=== PATIENT | female | born 1990 | race Caucasian/White ===

== ENCOUNTER 2016-06-09 16:05 | Inpatient (IN) | payer OTHER ==
[~2016-06-09] VITALS: Ht 170.2 cm; Wt 50.3 kg
[2016-06-09 16:05] VITALS: BP 109/73
[2016-06-09 18:50] VITALS: BP 106/66
[2016-06-09 19:45] LABS: BASOPHILS % (AUTO) 1.2 % (0.0-2.0); EOSINOPHILS % (AUTO) 0.1 % (0.0-3.0); LYMPHOCYTES % (AUTO) 21.4 % (20.0-45.0); MEAN CORPUSCULAR HEMOGLOBIN 29.6 PG (27.0-31.0); MEAN CORPUSCULAR HGB CONC 31.5 G/DL (32.0-36.0); MEAN CORPUSCULAR VOLUME 94 FL (80-99); NEUTROPHILS % (AUTO) 74.2 % (45.0-75.0); PLATELET COUNT 371 K/UL (150-450); RED BLOOD COUNT 4.93 M/UL (4.20-5.40); RED CELL DISTRIBUTION WIDTH 16.7 % (11.6-14.8); WHITE BLOOD COUNT 12.6 K/UL (4.8-10.8)
[2016-06-09 19:59] LABS: ALANINE AMINOTRANSFERASE 31 U/L (3-33); ALBUMIN/GLOBULIN RATIO 1.6 (1.0-2.7); ALCOHOL 451 mg/dL; ANION GAP 25 (5-15); ASPARTATE AMINO TRANSFERASE 56 U/L (5-40); CALCIUM 8.8 mg/dL (8.6-10.2); CARBON DIOXIDE 20 mEQ/L (20-30); CHLORIDE 96 mEQ/L (98-107); CREATININE 0.7 mg/dL (0.5-0.9); GLOMERULAR FILTRATION RATE > 60 mL/min (>60); HEMOLYSIS 132; SODIUM 141 mEQ/L (135-145); TOTAL PROTEIN 7.7 g/dL (6.6-8.7)
[2016-06-09 20:01] LABS: POTASSIUM 5.6 mEQ/L (3.4-4.9)
[2016-06-09 21:59] VITALS: BP 110/69
[2016-06-09 23:30] VITALS: BP 115/71
--- NOTE | 2016-06-09 23:40 | History and Physical ---
History of Present Illness General Date patient seen: Jun 09, 2016 Reason for Hospitalization: Alcohol Intoxication Present Illness HPI 26 yo F w/ Hx ETOH abuse and dependence. Presented to ED w/ severe ETOH intoxication. Pt alert, however non cooperative w/ questioning. Found to have BAL level of 400, anion gap acidosis. Pt was [facility] in [place]. Allergies: Coded Allergies: No Known Allergies (Unverified , 06/09/16) UNABLE TO ASSESS (Unverified , 03/20/16) Patient History Limited by: medical condition - Pt poorly cooperative w/ questioning due to intoxication History Provided By: Patient, Medical Record Healthcare decision maker Resuscitation status Advanced Directive on File Review of Systems All Other Systems: negative except mentioned in HPI - pt poorly cooperative w/ questioning Physical Exam Physical Exam Narrative General Appearance: Alert, CIWA (4), No Apparent Distress Neuro: Cranial Nerves 3-12 NL, Grossly Non-Focal, Motor and Sensory Intact, Normal Gait, Normal Speech, Normal Tone HEENT: Atraumatic, EOMI, PERRLA, Symmetrical Neck: Full Range of Motion, Supple, No: Enlarged Thyroid, JVD, Lymphadenopathy, Tenderness Cardiovascular: Normal S1, Normal S2, Regular Rate, Regular Rhythm, No: Gallops, Murmurs, Rubs Lungs: Clear Bilaterally, Normal Air Movement, Respiratory Effort (Non-Labored) , No: Rhonchi, Wheezing Abdomen: Bowel Sounds Present, Soft, No: Distended, Masses, Organomegaly, Tenderness Extremities: Capillary Refill Exam (< 3 seconds (WNL)), Normal Pulses, No: Clubbing, Cyanosis, Edema Skin: Dry, Intact, No: Cyanosis, Jaundiced, Rashes Lymph: No: Lymphadenopathy, Lymphedema Psych/Mental Status: Mental Status NL Last 24 Hour Vital Signs Date Time Temp Pulse Resp B/P Pulse Ox O2 Delivery O2 Flow Rate FiO2 06/09/16 21:59 98.1 85 20 110/69 100 Room Air 06/09/16 18:50 98.1 91 20 106/66 100 Room Air 06/09/16 16:05 98.2 68 20 109/73 100 Room Air 06/09/16 16:00 98.2 92 20 109/73 100 Room Air Laboratory Tests Test 06/09/16 19:30 White Blood Count 12.6 K/UL (4.8-10.8) H Red Blood Count 4.93 M/UL (4.20-5.40) Hemoglobin 14.6 G/DL (12.0-16.0) Hematocrit 46.4 % (37.0-47.0) Mean Corpuscular Volume 94 FL (80-99) Mean Corpuscular Hemoglobin 29.6 PG (27.0-31.0) Mean Corpuscular Hemoglobin Concent 31.5 G/DL (32.0-36.0) L Red Cell Distribution Width 16.7 % (11.6-14.8) H Platelet Count 371 K/UL (150-450) Mean Platelet Volume 6.0 FL (6.5-10.1) L Neutrophils (%) (Auto) 74.2 % (45.0-75.0) Lymphocytes (%) (Auto) 21.4 % (20.0-45.0) Monocytes (%) (Auto) 3.0 % (1.0-10.0) Eosinophils (%) (Auto) 0.1 % (0.0-3.0) Basophils (%) (Auto) 1.2 % (0.0-2.0) Sodium Level 141 mEQ/L (135-145) Potassium Level 5.6 mEQ/L (3.4-4.9) H Chloride Level 96 mEQ/L (98-107) L Carbon Dioxide Level 20 mEQ/L (20-30) Anion Gap 25 (5-15) H Blood Urea Nitrogen 13 mg/dL (7-23) Creatinine 0.7 mg/dL (0.5-0.9) Estimat Glomerular Filtration Rate > 60 mL/min (>60) Glucose Level 76 mg/dL (74-106) Calcium Level 8.8 mg/dL (8.6-10.2) Total Bilirubin 0.5 mg/dL (0.0-1.2) Aspartate Amino Transf (AST/SGOT) 56 U/L (5-40) H Alanine Aminotransferase (ALT/SGPT) 31 U/L (3-33) Alkaline Phosphatase 67 U/L (35-104) Total Protein 7.7 g/dL (6.6-8.7) Albumin 4.8 g/dL (3.5-5.2) Globulin 2.9 g/dL Albumin/Globulin Ratio 1.6 (1.0-2.7) Serum Alcohol 451 mg/dL Height (Feet): 5 Height (Inches): 7.00 Weight (Pounds): 110 Assessment/Plan Status: stable Assessment/Plan # Alcohol use disorder/ alcohol dependence with acute intoxication (F10.229) # Alcoholic ketoacidosis # Hyperkalemia, due to alcoholic ketoacidosis - admit to in pt- close observation - thiamine 100mg IV - banana bag - IVF w/ D5 1/2 NS- CIWA protocol - seizure precautions - chem, mag, LFT's in AM - evaluation for detox/rehab time of note dose not reflect time of clinical encounter Gabino Henderson MD Jun 09, 2016 23:40
[2016-06-10 01:21] VITALS: BP 110/76
[2016-06-10] MEDS ORDERED: Thiamine HCl 100 MG, Folic Acid 1 MG, Magnesium Sulfate 2,000 MG, Multivitamin - 12 Inj... IV SCH ×10 (02:30→08:00)
[2016-06-10] MEDS ORDERED: LORazepam Inj 2mg/ml 1ml IV PRN (02:30)
[2016-06-10 04:00] VITALS: BP 106/70
[2016-06-10] MEDS: D5 1/2NS 1,000 ML IV SCH ×2 (04:56→13:14)
[2016-06-10 08:01] VITALS: BP 112/60
[2016-06-10] MEDS ORDERED: D5W IVPB SCH (09:00)
[2016-06-10] MEDS ORDERED: Folic Acid 1 MG, Magnesium Sulfate 2,000 MG, Multivitamin - 12 Injection 10 ML in NS w/... IV SCH (09:00)
[2016-06-10] MEDS ORDERED: THIAMINE IVPB SCH (09:00)
[2016-06-10 10:01] LABS: BASOPHILS % (AUTO) 0.8 % (0.0-2.0); EOSINOPHILS % (AUTO) 0.2 % (0.0-3.0); LYMPHOCYTES % (AUTO) 15.6 % (20.0-45.0); MEAN CORPUSCULAR HGB CONC 33.5 G/DL (32.0-36.0); MEAN CORPUSCULAR VOLUME 89 FL (80-99); MONOCYTES % (AUTO) 16.6 % (1.0-10.0); NEUTROPHILS % (AUTO) 66.8 % (45.0-75.0); PLATELET COUNT 343 K/UL (150-450); RED BLOOD COUNT 4.18 M/UL (4.20-5.40); RED CELL DISTRIBUTION WIDTH 15.7 % (11.6-14.8); WHITE BLOOD COUNT 10.5 K/UL (4.8-10.8)
[2016-06-10 10:41] LABS: ALANINE AMINOTRANSFERASE 25 U/L (3-33); ALBUMIN/GLOBULIN RATIO 1.7 (1.0-2.7); ANION GAP 17 (5-15); ASPARTATE AMINO TRANSFERASE 36 U/L (5-40); CALCIUM 9.2 mg/dL (8.6-10.2); CARBON DIOXIDE 27 mEQ/L (20-30); CHLORIDE 92 mEQ/L (98-107); CREATININE 0.6 mg/dL (0.5-0.9); GLOMERULAR FILTRATION RATE > 60 mL/min (>60); HEMOLYSIS 3; MAGNESIUM 1.5 mg/dL (1.7-2.5); POTASSIUM 4.2 mEQ/L (3.4-4.9); SODIUM 136 mEQ/L (135-145); TOTAL PROTEIN 6.7 g/dL (6.6-8.7)
[2016-06-10 12:57] VITALS: BP 108/59
[2016-06-10] MEDS ORDERED: D5 1/2NS 1,000 ML IV SCH (13:00)
[2016-06-10] MEDS: chlordiazePOXIDE 25mg Cap ORAL SCH ×2 (13:13→21:39)
[2016-06-10 16:37] VITALS: BP 119/81
[2016-06-10] MEDS ORDERED: D5 1/2NS 1000ml IV ONE (18:32)
[2016-06-10] MEDS ORDERED: Tubing IV Secondary IV ONE (18:32)
[2016-06-10 20:00] VITALS: BP 120/81
--- NOTE | 2016-06-10 20:18 | General Progress Note ---
Assessment/Plan Problem List: (1) Hypomagnesemia ICD Codes: E83.42 - Hypomagnesemia SNOMED: 127494125 (2) Alcoholic hepatitis ICD Codes: K70.10 - Alcoholic hepatitis without ascites SNOMED: 660452718 (3) Alcohol withdrawal ICD Codes: F10.239 - Alcohol dependence with withdrawal, unspecified SNOMED: 692595405 (4) Alcohol abuse ICD Codes: F10.10 - Alcohol abuse, uncomplicated SNOMED: 64196046, 16446641 Status: progressing Assessment/Plan # Alcohol use disorder/ alcohol dependence with acute intoxication (F10.229) # Alcoholic ketoacidosis # Hyperkalemia, due to alcoholic ketoacidosis - admit to in pt- close observation - thiamine 100mg IV -folate, MVI - banana bag - IVF w/ D5 / NS- CIWA protocol -start Librium - seizure precautions - chem, mag, LFT's in AM - evaluation for detox/rehab Subjective Date patient seen: Jun 10, 2016 Time patient seen: 20:16 Allergies: Coded Allergies: No Known Allergies (Unverified , 06/09/16) Subjective +n/v Objective Last 24 Hour Vital Signs Date Time Temp Pulse Resp B/P Pulse Ox O2 Delivery O2 Flow Rate FiO2 06/10/16 16:37 98.4 97 20 119/81 95 Room Air 06/10/16 12:57 97.8 99 18 108/59 95 Room Air 06/10/16 08:01 98.0 102 18 112/60 95 Room Air 06/10/16 04:00 98.1 89 18 106/70 95 Room Air 89 06/10/16 01:21 97.6 86 18 110/76 100 Room Air 06/10/16 01:00 98.1 85 16 115/72 100 Room Air 06/09/16 23:30 98.4 83 16 115/71 99 Room Air 06/09/16 21:59 98.1 85 20 110/69 100 Room Air Intake and Output 06/09/16 06/10/16 19:00 07:00 Intake Total 660 ml Balance 660 ml Intake Oral 460 ml IV Total 200 ml # Voids 1 1 Laboratory Tests 06/10/16 09:30: White Blood Count 10.5, Red Blood Count 4.18L, Hemoglobin 12.5, Hematocrit 37.4 , Mean Corpuscular Volume 89, Mean Corpuscular Hemoglobin 30.0, Mean Corpuscular Hemoglobin Concent 33.5, Red Cell Distribution Width 15.7H, Platelet Count 343, Mean Platelet Volume 6.0L, Neutrophils (%) (Auto) 66.8, Lymphocytes (%) (Auto) 15.6L, Monocytes (%) (Auto) 16.6H, Eosinophils (%) (Auto ) 0.2, Basophils (%) (Auto) 0.8, Sodium Level 136, Potassium Level 4.2, Chloride Level 92L, Carbon Dioxide Level 27, Anion Gap 17H, Blood Urea Nitrogen 11, Creatinine 0.6, Estimat Glomerular Filtration Rate > 60, Glucose Level 112H , Calcium Level 9.2, Magnesium Level 1.5L, Total Bilirubin 1.0, Aspartate Amino Transf (AST/SGOT) 36, Alanine Aminotransferase (ALT/SGPT) 25, Alkaline Phosphatase 61, Total Protein 6.7, Albumin 4.3, Globulin 2.4, Albumin/Globulin Ratio 1.7 Height (Feet): 5 Height (Inches): 7.00 Weight (Pounds): 111 Objective General Appearance: Alert, CIWA (4), No Apparent Distress Neuro: Cranial Nerves 3-12 NL, Grossly Non-Focal, Motor and Sensory Intact, Normal Gait, Normal Speech, Normal Tone HEENT: Atraumatic, EOMI, PERRLA, Symmetrical Mouth: + tongue fasciculations Neck: Full Range of Motion, Supple, No: Enlarged Thyroid, JVD, Lymphadenopathy, Tenderness Cardiovascular: Normal S1, Normal S2, Regular Rate, Regular Rhythm, No: Gallops, Murmurs, Rubs Lungs: Clear Bilaterally, Normal Air Movement, Respiratory Effort (Non-Labored) , No: Rhonchi, Wheezing Abdomen: Bowel Sounds Present, Soft, No: Distended, Masses, Organomegaly, Tenderness Extremities: Capillary Refill Exam (< 3 seconds (WNL)), Normal Pulses, No: Clubbing, Cyanosis, Edema Skin: Dry, Intact, No: Cyanosis, Jaundiced, Rashes Lymph: No: Lymphadenopathy, Lymphedema Psych/Mental Status: Mental Status NL Kike Guzman M.D. Jun 10, 2016 20:18
[2016-06-11] VITALS (7 sets, daily range): BP systolic 0–124; BP diastolic 63–73
[2016-06-11] MEDS: D5 1/2NS 1,000 ML IV SCH ×3 (00:45→20:24)
[2016-06-11] MEDS: LORazepam 1mg tab ORAL PRN (00:50)
[2016-06-11] MEDS: chlordiazePOXIDE 25mg Cap ORAL SCH ×2 (06:24→17:12)
[2016-06-11 08:02] LABS: ALANINE AMINOTRANSFERASE 22 U/L (3-33); ALBUMIN/GLOBULIN RATIO 1.5 (1.0-2.7); ANION GAP 15 (5-15); ASPARTATE AMINO TRANSFERASE 36 U/L (5-40); CALCIUM 8.9 mg/dL (8.6-10.2); CARBON DIOXIDE 25 mEQ/L (20-30); CHLORIDE 98 mEQ/L (98-107); CREATININE 0.7 mg/dL (0.5-0.9); GLOMERULAR FILTRATION RATE > 60 mL/min (>60); HEMOLYSIS 5; MAGNESIUM 2.2 mg/dL (1.7-2.5); POTASSIUM 4.3 mEQ/L (3.4-4.9); SODIUM 138 mEQ/L (135-145); TOTAL PROTEIN 6.4 g/dL (6.6-8.7)
[2016-06-11 08:43] LABS: BILIRUBIN,DIRECT 0.2 mg/dL (0.1-0.3)
--- NOTE | 2016-06-11 15:17 | Emergency Room Report ---
History of Present Illness General Chief Complaint: Alcohol Intoxication Source: Patient, Medical Record Present Illness HPI The patient is a 26-year-old female brought in by ambulance with twin sister for alcohol intoxication. The paramedics state that these patients are well- known for alcohol intoxication and they're usually seen at [facility]. The patient's are said to have gone through many rehabilitation facilities and continue to leave or fail out and return to drinking heavily. The patients are here with senior software architect who states the parents were out of the country continuously send them to these different facilities for treatment. The patient is unable to provide any information at this time due to mental state. Allergies: Coded Allergies: No Known Allergies (Unverified , 06/09/16) Patient History Limited by: other - intoxication Past Medical History: see triage record Past Surgical History: unable to obtain Pertinent Family History: unable to obtain Now: No Reviewed Nursing Documentation: PMH: Agreed, PSxH: Agreed Nursing Documentation-PMH Past Medical History: No Stated History History Of Psychiatric Problem: Yes - ETOH ABUSE Review of Systems All Other Systems: limited - Limited by mental state Physical Exam Vital Signs Date Time Temp Pulse Resp B/P Pulse Ox O2 Delivery O2 Flow Rate FiO2 06/09/16 16:00 98.2 92 20 109/73 100 Room Air Sp02 EP Interpretation: reviewed, normal General Appearance: no apparent distress, lethargic Head: normocephalic, atraumatic Eyes: bilateral eye PERRL, bilateral eye normal inspection ENT: hearing grossly normal, normal pharynx, no angioedema Neck: full range of motion, supple/symm/no masses Respiratory: chest non-tender, lungs clear, normal breath sounds, no wheezing, speaking full sentences Cardiovascular #1: regular rate, rhythm, no edema Gastrointestinal: normal bowel sounds, soft, non-distended, no guarding, no rebound Musculoskeletal: back normal, gait/station normal, normal range of motion, non- tender Neurologic: responsive, glassware verifier III-XII nml as tested, sensory intact, other - speech slurred Psychiatric: no suicidal/homicidal ideation Skin: normal color, no rash, warm/dry, well hydrated Medical Decision Making PA Attestation Dr. Blandon is my supervising physician. Patient management was discussed with my supervising physician Diagnostic Impression: Primary Impression: Acute alcoholic intoxication ER Course The patient is a 26-year-old female brought in by ambulance with twin sister for alcohol intoxication. DDx considered but not limited to: acute alcohol intoxication, hepatic encephalopathy, drug overdose, hypoglycemia, psychosis PE: Vitals WNL. NAD. Sleeping. head NC/AT. PERRL. Awakens to verbal and physical stimuli. RRR. Lungs CTA bilat. Abd non tender. Foul smelling CBC unremarkable. CMP shows hyperkalemia. Blood alcohol level is markedly elevated Pt given IV fluids. The patient becomes more responsive and alert as time goes on. The patient is given time to rest in the emergency department. The patient will be admitted for severe alcohol intoxication in stable condition Laboratory Tests Test 06/09/16 19:30 06/10/16 09:30 06/11/16 05:20 White Blood Count 12.6 K/UL (4.8-10.8) H 10.5 K/UL (4.8-10.8) Red Blood Count 4.93 M/UL (4.20-5.40) 4.18 M/UL (4.20-5.40) L Hemoglobin 14.6 G/DL (12.0-16.0) 12.5 G/DL (12.0-16.0) Hematocrit 46.4 % (37.0-47.0) 37.4 % (37.0-47.0) Mean Corpuscular Volume 94 FL (80-99) 89 FL (80-99) Mean Corpuscular Hemoglobin 29.6 PG (27.0-31.0) 30.0 PG (27.0-31.0) Mean Corpuscular Hemoglobin Concent 31.5 G/DL (32.0-36.0) L 33.5 G/DL (32.0-36.0) Red Cell Distribution Width 16.7 % (11.6-14.8) H 15.7 % (11.6-14.8) H Platelet Count 371 K/UL (150-450) 343 K/UL (150-450) Mean Platelet Volume 6.0 FL (6.5-10.1) L 6.0 FL (6.5-10.1) L Neutrophils (%) (Auto) 74.2 % (45.0-75.0) 66.8 % (45.0-75.0) Lymphocytes (%) (Auto) 21.4 % (20.0-45.0) 15.6 % (20.0-45.0) L Monocytes (%) (Auto) 3.0 % (1.0-10.0) 16.6 % (1.0-10.0) H Eosinophils (%) (Auto) 0.1 % (0.0-3.0) 0.2 % (0.0-3.0) Basophils (%) (Auto) 1.2 % (0.0-2.0) 0.8 % (0.0-2.0) Sodium Level 141 mEQ/L (135-145) 136 mEQ/L (135-145) 138 mEQ/L (135-145) Potassium Level 5.6 mEQ/L (3.4-4.9) H 4.2 mEQ/L (3.4-4.9) 4.3 mEQ/L (3.4-4.9) Chloride Level 96 mEQ/L (98-107) L 92 mEQ/L (98-107) L 98 mEQ/L (98-107) Carbon Dioxide Level 20 mEQ/L (20-30) 27 mEQ/L (20-30) 25 mEQ/L (20-30) Anion Gap 25 (5-15) H 17 (5-15) H 15 (5-15) Blood Urea Nitrogen 13 mg/dL (7-23) 11 mg/dL (7-23) 9 mg/dL (7-23) Creatinine 0.7 mg/dL (0.5-0.9) 0.6 mg/dL (0.5-0.9) 0.7 mg/dL (0.5-0.9) Estimate Glomerular Filtration Rate > 60 mL/min (>60) > 60 mL/min (>60) > 60 mL/min (>60) Glucose Level 76 mg/dL (74-106) 112 mg/dL (74-106) H 100 mg/dL (74-106) Calcium Level 8.8 mg/dL (8.6-10.2) 9.2 mg/dL (8.6-10.2) 8.9 mg/dL (8.6-10.2) Total Bilirubin 0.5 mg/dL (0.0-1.2) 1.0 mg/dL (0.0-1.2) 1.3 mg/dL (0.0-1.2) H Aspartate Amino Transferase (AST) 56 U/L (5-40) H 36 U/L (5-40) 36 U/L (5-40) Alanine Aminotransferase (ALT) 31 U/L (3-33) 25 U/L (3-33) 22 U/L (3-33) Alkaline Phosphatase 67 U/L (35-104) 61 U/L (35-104) 67 U/L (35-104) Total Protein 7.7 g/dL (6.6-8.7) 6.7 g/dL (6.6-8.7) 6.4 g/dL (6.6-8.7) L Albumin 4.8 g/dL (3.5-5.2) 4.3 g/dL (3.5-5.2) 3.9 g/dL (3.5-5.2) Globulin 2.9 g/dL 2.4 g/dL 2.5 g/dL Albumin/Globulin Ratio 1.6 (1.0-2.7) 1.7 (1.0-2.7) 1.5 (1.0-2.7) Serum Alcohol 451 mg/dL Magnesium Level 1.5 mg/dL (1.7-2.5) L 2.2 mg/dL (1.7-2.5) Direct Bilirubin 0.2 mg/dL (0.1-0.3) Lab Results Impression CBC unremarkable. CMP shows hyperkalemia. Blood alcohol level is markedly elevated Last Vital Signs Date Time Temp Pulse Resp B/P Pulse Ox O2 Delivery O2 Flow Rate FiO2 06/11/16 11:45 97.5 98 18 109/64 99 Room Air Status: improved Disposition: ADMITTED INPATIENT Condition: Stable Scripts No Active Prescriptions or Reported Meds Referrals: NOT CHOSEN IPA/,REFERRING (PCP) TONY LEE Jun 11, 2016 15:17
[2016-06-11] MEDS ORDERED: Thiamine 100mg tab ORAL SCH (16:00)
--- NOTE | 2016-06-11 18:04 | General Progress Note ---
Assessment/Plan Problem List: (1) Hypomagnesemia ICD Codes: E83.42 - Hypomagnesemia SNOMED: 675088564 (2) Alcoholic hepatitis ICD Codes: K70.10 - Alcoholic hepatitis without ascites SNOMED: 122694581 (3) Alcohol withdrawal ICD Codes: F10.239 - Alcohol dependence with withdrawal, unspecified SNOMED: 369224321 (4) Alcohol abuse ICD Codes: F10.10 - Alcohol abuse, uncomplicated SNOMED: 29888398, 34214059 Assessment/Plan # Alcohol use disorder/ alcohol dependence with acute intoxication (F10.229) # Alcoholic ketoacidosis # Hyperkalemia, due to alcoholic ketoacidosis - admit to in pt- close observation - thiamine 100mg IV-->po -folate, MVI po - dc banana bag - IVF w/ D5 06/01 NS - CIWA protocol -start Librium taper - seizure precautions - chem, mag, LFT's in AM - pt not interested in detox/rehab Subjective Date patient seen: Jun 11, 2016 Time patient seen: 17:59 Allergies: Coded Allergies: No Known Allergies (Unverified , 06/09/16) Subjective no n/v Objective Last 24 Hour Vital Signs Date Time Temp Pulse Resp B/P Pulse Ox O2 Delivery O2 Flow Rate FiO2 06/11/16 16:00 97.7 95 18 105/70 98 Room Air 06/11/16 11:45 97.5 98 18 109/64 99 Room Air 06/11/16 08:00 97.5 65 18 100/63 98 Room Air 06/11/16 04:00 97.7 63 18 124/73 98 Room Air 06/11/16 00:00 97.9 65 18 111/68 97 Room Air 06/10/16 20:00 98.1 85 18 120/81 98 Room Air Intake and Output 06/10/16 06/11/16 19:00 07:00 Intake Total 1661 ml 1770 ml Balance 1661 ml 1770 ml Intake Oral 760 ml 570 ml IV Total 901 ml 1200 ml # Voids 4 4 Laboratory Tests 06/11/16 05:20: Sodium Level 138, Potassium Level 4.3, Chloride Level 98, Carbon Dioxide Level 25, Anion Gap 15, Blood Urea Nitrogen 9, Creatinine 0.7, Estimat Glomerular Filtration Rate > 60, Glucose Level 100, Calcium Level 8.9, Magnesium Level 2.2 , Total Bilirubin 1.3H, Direct Bilirubin 0.2, Aspartate Amino Transf (AST/SGOT) 36, Alanine Aminotransferase (ALT/SGPT) 22, Alkaline Phosphatase 67, Total Protein 6.4L, Albumin 3.9, Globulin 2.5, Albumin/Globulin Ratio 1.5 Height (Feet): 5 Height (Inches): 7.00 Weight (Pounds): 111 Objective General Appearance: Alert, sleepy but arousable, No Apparent Distress Neuro: Cranial Nerves 3-12 NL, Grossly Non-Focal, Motor and Sensory Intact, Normal Gait, Normal Speech, Normal Tone; no tongue fasciculations or tremor or flapping asterixis HEENT: Atraumatic, EOMI, PERRLA, Symmetrical Neck: Full Range of Motion, Supple, No: Enlarged Thyroid, JVD, Lymphadenopathy, Tenderness Cardiovascular: Normal S1, Normal S2, Regular Rate, Regular Rhythm, No: Gallops, Murmurs, Rubs Lungs: Clear Bilaterally, Normal Air Movement, Respiratory Effort (Non-Labored) , No: Rhonchi, Wheezing Abdomen: Bowel Sounds Present, Soft, No: Distended, Masses, Organomegaly, Tenderness Extremities: Capillary Refill Exam (< 3 seconds (WNL)), Normal Pulses, No: Clubbing, Cyanosis, Edema Skin: Dry, Intact, No: Cyanosis, Jaundiced, Rashes Lymph: No: Lymphadenopathy, Lymphedema Psych/Mental Status: Mental Status NL, clear thought process Kike Guzman M.D. Jun 11, 2016 18:04
[2016-06-12] MEDS: LORazepam 1mg tab ORAL PRN (00:17)
[2016-06-12] MEDS ORDERED: TraZODone 50mg tab ORAL SCH ×2 (02:30→21:00)
[2016-06-12 04:00] VITALS: BP 112/68
[2016-06-12] MEDS: D5 1/2NS 1,000 ML IV SCH (05:57)
[2016-06-12 08:00] VITALS: BP 90/56
[2016-06-12] MEDS: chlordiazePOXIDE 25mg Cap ORAL SCH (09:00)
[2016-06-12] MEDS ORDERED: MULTIVITAMINS1 EAC2 ORAL (11:27)
[2016-06-12] MEDS ORDERED: LIBRIUM10 MG ORAL (11:28)
[2016-06-12] MEDS ORDERED: VITAMIN B-1100 MG ORAL (11:29)
[2016-06-12] MEDS ORDERED: FOLIC ACID1 MG ORAL (11:29)
[2016-06-12 12:00] VITALS: BP 103/58
[2016-06-12] MEDS ORDERED: D5 1/2NS 1000ml IV ONE (14:59)
--- NOTE | 2016-06-12 15:34 | Discharge Summary ---
Discharge Summary Hospital Course Date of Admission Jun 09, 2016 at 19:23 Date of Discharge Jun 12, 2016 at 15:00 Admitting Diagnosis ams, etoh intoxication HPI Citlali Michel is a 26 year old female who was admitted on Jun 09, 2016 at 19: 23 for Altered Mental Status, Etoh intoxication Hospital Course - admitted to in pt for close observation - thiamine 100mg IV-->po -folate, MVI po - banana bag - IVF w/ D5 1/2 NS - CIWA protocol -started Librium taper - seizure precautions - chem, mag, LFT's - pt not interested in detox/rehab -counseled pt extensively on alcohol abstinence Discharge Medications Continued Medications: Chlordiazepoxide Hcl* (Librium*) 10 Mg Capsule 25 MG ORAL DAILY for 5 Days, #5 CAP 0 Refills Folic Acid* (Folic Acid*) 1 Mg Tablet 1 MG ORAL DAILY, #30 TAB Multivitamins* (Multivitamins*) 1 Each Tablet 1 TAB ORAL DAILY, #30 TAB 0 Refills Thiamine Hcl* (Vitamin B-1*) 100 Mg Tablet 100 MG ORAL DAILY, #30 TAB 0 Refills Discharge Condition Upon Discharge: stable Discharge Disposition Patient was discharged to Home (01) Discharge Diagnoses: (1) Hypomagnesemia (2) Alcohol abuse (3) Alcoholic hepatitis (4) Alcohol withdrawal (5) Acute alcoholic intoxication Kike Guzman M.D. Jun 12, 2016 15:34
== END 2016-06-12 15:00 | disposition home or self-care (01) | DRG 897 ==
LOC: EDBD 16:05 → EMR 16:35 → 4W 19:23 → EDBEDREQ 22:45 → 4W 06-10 00:58
PROC: HZ2ZZZZ Detoxification Services for Substance Abuse Treatment (ICD-10-PCS; principal; 2016-06-10)
DX: F10.239 Alcohol dependence with withdrawal, unspecified (principal); E87.2 Acidosis; K70.10 Alcoholic hepatitis without ascites; F10.229 Alcohol dependence with intoxication, unspecified; Y90.8 Blood alcohol level of 240 mg/100 ml or more; E87.5 Hyperkalemia; E83.42 Hypomagnesemia
CPT/HCPCS: 36415; 80053; 80329; 82248; 83735; 85025; J2405

== ENCOUNTER 2017-06-21 18:16 | Inpatient (IN) | payer OTHER ==
[~2017-06-21] VITALS: Ht 167.6 cm; Wt 49.9 kg
[~2017-06-21 18:16] MED LIST: FOLIC ACID1 MG ORAL; LIBRIUM10 MG ORAL; MULTIVITAMINS1 EAC2 ORAL; VITAMIN B-1100 MG ORAL
--- NOTE | 2017-06-21 19:33 | Emergency Room Report ---
History of Present Illness General Chief Complaint: Altered Level of Consciousness Source: EMS Present Illness HPI Patient presents with sister Was found on the floor of a hotel room unresponsive Patient is nonverbal Cannot provide any history at this time Patient was found in the room with a bottle of beer around no other drug paraphernalia no other notes Very limited history present illness Allergies: Coded Allergies: No Known Allergies (Unverified , 06/09/16) Patient History Past Medical History: see triage record Pertinent Family History: none Last Menstrual Period: UNK Reviewed Nursing Documentation: PMH: Agreed, PSxH: Agreed Nursing Documentation-PMH Past Medical History: Deferred Review of Systems All Other Systems: limited - my limited to the system Physical Exam Vital Signs Date Time Temp Pulse Resp B/P (MAP) Pulse Ox O2 Delivery O2 Flow Rate FiO2 06/21/17 18:17 97.9 90 18 115/70 96 Room Air Sp02 EP Interpretation: reviewed, normal General Appearance: no apparent distress Head: normocephalic, atraumatic Eyes: bilateral eye PERRL ENT: normal pharynx Neck: supple Respiratory: lungs clear, no respiratory distress, no retraction Cardiovascular #1: regular rate, rhythm, no edema Gastrointestinal: non tender, soft, no mass Musculoskeletal: other - Patient does not follow commands however does withdraw to physical stimuli purposefully Neurologic: responsive - to physical stimuli Psychiatric: other - patient is not verbal Lymphatic: no adenopathy Medical Decision Making Diagnostic Impression: Primary Impression: Altered level of consciousness Additional Impression: Acute alcoholic intoxication ER Course Multiple differentials considered Patient is unresponsive to verbal stimuli Extensive blood work initiated At this time patient's alcohol level is significantly elevated patient still remains unresponsive Given the presentation and the requirement for close reevaluation patient is admitted for further inpatient care Labs Test 06/21/17 19:23 06/21/17 20:10 Urine HCG, Qualitative Negative Urine Opiates Screen Negative (NEGATIVE) Urine Barbiturates Screen Negative (NEGATIVE) Phencyclidine (PCP) Screen Negative (NEGATIVE) Urine Amphetamines Screen Negative (NEGATIVE) Urine Benzodiazepines Screen Negative (NEGATIVE) Urine Cocaine Screen Negative (NEGATIVE) Urine Marijuana (THC) Screen Negative (NEGATIVE) White Blood Count 8.6 K/UL (4.8-10.8) Red Blood Count 4.67 M/UL (4.20-5.40) Hemoglobin 13.5 G/DL (12.0-16.0) Hematocrit 42.1 % (37.0-47.0) Mean Corpuscular Volume 90 FL (80-99) Mean Corpuscular Hemoglobin 29.0 PG (27.0-31.0) Mean Corpuscular Hemoglobin Concent 32.1 G/DL (32.0-36.0) Red Cell Distribution Width 15.9 % (11.6-14.8) Platelet Count 346 K/UL (150-450) Mean Platelet Volume 6.1 FL (6.5-10.1) Neutrophils (%) (Auto) 62.9 % (45.0-75.0) Lymphocytes (%) (Auto) 27.0 % (20.0-45.0) Monocytes (%) (Auto) 8.5 % (1.0-10.0) Eosinophils (%) (Auto) 0.6 % (0.0-3.0) Basophils (%) (Auto) 1.0 % (0.0-2.0) Sodium Level 147 MMOL/L (136-145) Potassium Level 4.4 MMOL/L (3.5-5.1) Chloride Level 110 MMOL/L (98-107) Carbon Dioxide Level 29 MMOL/L (21-32) Anion Gap 8 mmol/L (5-15) Blood Urea Nitrogen 6 mg/dL (7-18) Creatinine 0.7 MG/DL (0.55-1.30) Estimat Glomerular Filtration Rate > 60 mL/min (>60) Glucose Level 94 MG/DL (74-106) Calcium Level 8.0 MG/DL (8.5-10.1) Total Bilirubin 0.2 MG/DL (0.2-1.0) Aspartate Amino Transf (AST/SGOT) 84 U/L (15-37) Alanine Aminotransferase (ALT/SGPT) 42 U/L (12-78) Alkaline Phosphatase 65 U/L (46-116) Total Protein 7.4 G/DL (6.4-8.2) Albumin 3.4 G/DL (3.4-5.0) Globulin 4.0 g/dL Albumin/Globulin Ratio 0.9 (1.0-2.7) Salicylates Level 0.8 ug/mL (2.8-20) Acetaminophen Level < 2 MCG/ML (10-30) Serum Alcohol 442 mg/dL Last Vital Signs Date Time Temp Pulse Resp B/P (MAP) Pulse Ox O2 Delivery O2 Flow Rate FiO2 06/21/17 18:17 97.9 90 18 115/70 96 Room Air Status: improved Disposition: ADMITTED INPATIENT Condition: Serious AB OLSEN D.O. Jun 21, 2017 19:32
[2017-06-21 20:41] LABS: EOSINOPHILS % (AUTO) 0.6 % (0.0-3.0); HEMATOCRIT 42.1 % (37.0-47.0); HEMOGLOBIN 13.5 G/DL (12.0-16.0); MEAN CORPUSCULAR VOLUME 90 FL (80-99); MONOCYTES % (AUTO) 8.5 % (1.0-10.0); NEUTROPHILS % (AUTO) 62.9 % (45.0-75.0); PLATELET COUNT 346 K/UL (150-450); RED BLOOD COUNT 4.67 M/UL (4.20-5.40); RED CELL DISTRIBUTION WIDTH 15.9 % (11.6-14.8); WHITE BLOOD COUNT 8.6 K/UL (4.8-10.8)
[2017-06-21 20:46] LABS: ANION GAP 8 mmol/L (5-15); BLOOD UREA NITROGEN 6 mg/dL (7-18); CARBON DIOXIDE 29 MMOL/L (21-32); CHLORIDE 110 MMOL/L (98-107); CREATININE 0.7 MG/DL (0.55-1.30); POTASSIUM 4.4 MMOL/L (3.5-5.1); SODIUM 147 MMOL/L (136-145)
[2017-06-21 20:53] LABS: ALANINE AMINOTRANSFERASE 42 U/L (12-78); ALBUMIN 3.4 G/DL (3.4-5.0); ALBUMIN/GLOBULIN RATIO 0.9 (1.0-2.7); ALKALINE PHOSPHATASE 65 U/L (46-116); ASPARTATE AMINO TRANSFERASE 84 U/L (15-37); BILIRUBIN,TOTAL 0.2 MG/DL (0.2-1.0)
[2017-06-21 21:38] VITALS: BP 107/67
[2017-06-21] MEDS ORDERED: UNOBMED (23:42)
[2017-06-22] VITALS (7 sets, daily range): BP systolic 95–118; BP diastolic 63–76
[2017-06-22] MEDS: D5 1/2NS 1,000 ML IV SCH ×4 (02:15→18:21)
[2017-06-22] MEDS ORDERED: Thiamine HCl 100 MG, Folic Acid 1 MG, Magnesium Sulfate 2,000 MG, Multivitamin - 12 Inj... IV SCH ×5 (07:00)
[2017-06-22] MEDS: LORazepam 1mg tab ORAL PRN ×2 (08:17→23:45)
[2017-06-22] MEDS: Thiamine 100mg in D5W 55ml IVPB SCH (08:50)
[2017-06-22] MEDS: Folic Acid 1 MG, Magnesium Sulfate 2,000 MG, Multivitamin - 12 Injection 10 ML in NS w/... IV SCH (08:50)
--- NOTE | 2017-06-22 09:47 | History and Physical ---
History of Present Illness General Date patient seen: Jun 22, 2017 Time patient seen: 09:47 Reason for Hospitalization: Altered Level of Consciousness Present Illness HPI 27y/o female with pmh of alcohol abuse with dependence who presented with acute alcohol intoxication. Pt was found w/ twin sister on the floor of the hotel room. Pt was found next to her sister on the ground. Paramedics reported alcohol bottles around the room. No drugs found. On arrival to ED, pt is nonverbal and unresponsive to verbal stimuli. She did respond minimally to physical stimuli. Allergies: Coded Allergies: No Known Allergies (Unverified , 06/09/16) Medication History Scheduled Chlordiazepoxide Hcl* (Librium*), 25 MG ORAL DAILY, (Reported) Folic Acid* (Folic Acid*), 1 MG ORAL DAILY, (Reported) Multivitamins* (Multivitamins*), 1 TAB ORAL DAILY, (Reported) Thiamine Hcl* (Vitamin B-1*), 100 MG ORAL DAILY, (Reported) Miscellaneous Medications Unable to Obtain Medications (Unable To Obtain Meds), (Reported) Patient History Healthcare decision maker Resuscitation status Full Code Advanced Directive on File Review of Systems ROS Narrative LImited as pt with acute alcohol intoxication Physical Exam Physical Exam Narrative General: alert, cooperative, no distress, appears stated age, somnolent but arousable briefly to voice Head: normocephalic, without obvious abnormality, atraumatic Eyes: conjunctivae/corneas clear. PERRL, EOM's intact Throat: lips, mucosa, and tongue normal. MMM Neck: supple, symmetrical, trachea midline, and no JVD Lungs: clear to auscultation bilaterally Heart: regular rate and rhythm, S1, S2 normal, no murmur, click, rub or gallop Abdomen: soft, non-tender, non-distended, bowel sounds normal; no masses or organomegaly Extremities: extremities normal, atraumatic, no cyanosis or edema Pulses: 2+ and symmetric Skin: skin color, texture, turgor normal; no rashes or lesions Neurologic: grossly normal, no focal deficits Last 24 Hour Vital Signs Date Time Temp Pulse Resp B/P (MAP) Pulse Ox O2 Delivery O2 Flow Rate FiO2 06/22/17 09:00 97.7 97 20 102/68 99 Room Air 06/22/17 04:41 97.7 115 19 104/74 95 06/22/17 01:10 99.0 95 16 95/63 96 Room Air 06/22/17 00:48 99.0 95 16 95/63 96 Room Air 06/21/17 21:38 99.0 97 18 107/67 98 Room Air 06/21/17 18:17 97.9 90 18 115/70 96 Room Air Intake and Output 06/21/17 06/22/17 19:00 07:00 Intake Total 1095 ml Balance 1095 ml Intake Oral 720 ml IV Total 375 ml # Voids 1 Laboratory Tests Test 06/21/17 19:23 06/21/17 20:10 Urine HCG, Qualitative Negative Urine Opiates Screen Negative (NEGATIVE) Urine Barbiturates Screen Negative (NEGATIVE) Phencyclidine (PCP) Screen Negative (NEGATIVE) Urine Amphetamines Screen Negative (NEGATIVE) Urine Benzodiazepines Screen Negative (NEGATIVE) Urine Cocaine Screen Negative (NEGATIVE) Urine Marijuana (THC) Screen Negative (NEGATIVE) White Blood Count 8.6 K/UL (4.8-10.8) Red Blood Count 4.67 M/UL (4.20-5.40) Hemoglobin 13.5 G/DL (12.0-16.0) Hematocrit 42.1 % (37.0-47.0) Mean Corpuscular Volume 90 FL (80-99) Mean Corpuscular Hemoglobin 29.0 PG (27.0-31.0) Mean Corpuscular Hemoglobin Concent 32.1 G/DL (32.0-36.0) Red Cell Distribution Width 15.9 % (11.6-14.8) H Platelet Count 346 K/UL (150-450) Mean Platelet Volume 6.1 FL (6.5-10.1) L Neutrophils (%) (Auto) 62.9 % (45.0-75.0) Lymphocytes (%) (Auto) 27.0 % (20.0-45.0) Monocytes (%) (Auto) 8.5 % (1.0-10.0) Eosinophils (%) (Auto) 0.6 % (0.0-3.0) Basophils (%) (Auto) 1.0 % (0.0-2.0) Sodium Level 147 MMOL/L (136-145) H Potassium Level 4.4 MMOL/L (3.5-5.1) Chloride Level 110 MMOL/L (98-107) H Carbon Dioxide Level 29 MMOL/L (21-32) Anion Gap 8 mmol/L (5-15) Blood Urea Nitrogen 6 mg/dL (7-18) L Creatinine 0.7 MG/DL (0.55-1.30) Estimat Glomerular Filtration Rate > 60 mL/min (>60) Glucose Level 94 MG/DL (74-106) Calcium Level 8.0 MG/DL (8.5-10.1) L Total Bilirubin 0.2 MG/DL (0.2-1.0) Aspartate Amino Transf (AST/SGOT) 84 U/L (15-37) H Alanine Aminotransferase (ALT/SGPT) 42 U/L (12-78) Alkaline Phosphatase 65 U/L (46-116) Total Protein 7.4 G/DL (6.4-8.2) Albumin 3.4 G/DL (3.4-5.0) Globulin 4.0 g/dL Albumin/Globulin Ratio 0.9 (1.0-2.7) L Salicylates Level 0.8 ug/mL (2.8-20) L Acetaminophen Level < 2 MCG/ML (10-30) L Serum Alcohol 442 mg/dL Height (Feet): 5 Height (Inches): 6.00 Weight (Pounds): 110 Medications Current Medications Medications (Trade) Dose Ordered Sig/Glenny Route PRN Reason Start Time Stop Time Status Last Admin Dose Admin Dextrose (Dextrose 50%) STAT PRN IV Hypoglycemia 06/22/17 01:00 07/22/17 00:59 Dextrose/Sodium Chloride 1,000 ml @ 125 mls/hr Q8H IV 06/22/17 01:49 07/22/17 01:48 06/22/17 02:15 Folic Acid 1 mg/ Magnesium Sulfate 2000 mg/ Multivitamins 10 ml/Sodium Chloride 1,014.2 ml @ 125 mls/ hr Q24H IV 06/22/17 08:00 07/22/17 07:59 06/22/17 08:50 Lorazepam (Ativan) 1 mg Q2H PRN ORAL For Anxiety 06/22/17 01:00 06/29/17 00:59 06/22/17 08:17 Thiamine HCl 100 mg/Dextrose 56 ml @ 112 mls/hr Q24H IVPB 06/22/17 08:00 07/22/17 07:59 06/22/17 08:50 Assessment/Plan Problem List: (1) Alcohol use disorder ICD Codes: F10.99 - Alcohol use, unspecified with unspecified alcohol-induced disorder SNOMED: 536580, 95321282 (2) Alcohol dependence ICD Codes: F10.20 - Alcohol dependence, uncomplicated SNOMED: 45811591 (3) Acute alcoholic intoxication ICD Codes: F10.129 - Alcohol abuse with intoxication, unspecified SNOMED: 50507186 (4) Altered level of consciousness ICD Codes: R40.4 - Transient alteration of awareness SNOMED: 7529944 (5) Alcohol withdrawal ICD Codes: F10.239 - Alcohol dependence with withdrawal, unspecified SNOMED: 247507120 (6) Alcohol abuse ICD Codes: F10.10 - Alcohol abuse, uncomplicated SNOMED: 07394825, 44241276 (7) Hypernatremia ICD Codes: E87.0 - Hyperosmolality and hypernatremia SNOMED: 46368362 Status: unchanged Assessment/Plan - Admit inpt - Monitor respiratory status closely - Monitor for withdrawal - Zofran PRN n/v - Banana bag q24h - mIVFs - CIWA protocol - Seizure precautions - SW consult for evaluation for detox/rehab DVT ppx: SCDs FULL CODE 70min spent on this case w/ >50% on care/coordination. D/w pt/family, RN, SW/CM regarding mgmt and dispo. Tiffani Golden M.D. Jun 22, 2017 09:47
[2017-06-23] VITALS: BP 122/78
[2017-06-23] MEDS: D5 1/2NS 1,000 ML IV SCH (03:00)
[2017-06-23 04:00] VITALS: BP 109/62
[2017-06-23 07:03] LABS: BASOPHILS % (AUTO) 1.2 % (0.0-2.0); EOSINOPHILS % (AUTO) 1.7 % (0.0-3.0); HEMATOCRIT 38.3 % (37.0-47.0); HEMOGLOBIN 12.4 G/DL (12.0-16.0); LYMPHOCYTES % (AUTO) 30.1 % (20.0-45.0); MEAN CORPUSCULAR VOLUME 89 FL (80-99); MONOCYTES % (AUTO) 11.8 % (1.0-10.0); NEUTROPHILS % (AUTO) 55.3 % (45.0-75.0); PLATELET COUNT 288 K/UL (150-450); RED CELL DISTRIBUTION WIDTH 15.7 % (11.6-14.8); WHITE BLOOD COUNT 7.1 K/UL (4.8-10.8)
[2017-06-23 07:33] LABS: ANION GAP 8 mmol/L (5-15); BLOOD UREA NITROGEN 10 mg/dL (7-18); CALCIUM 8.4 MG/DL (8.5-10.1); CARBON DIOXIDE 23 MMOL/L (21-32); CHLORIDE 104 MMOL/L (98-107); CREATININE 0.6 MG/DL (0.55-1.30); PHOSPHORUS 3.1 MG/DL (2.5-4.9); SODIUM 135 MMOL/L (136-145)
[2017-06-23 08:00] VITALS: BP 102/63
[2017-06-23] MEDS: Thiamine 100mg in D5W 55ml IVPB SCH (08:26)
[2017-06-23] MEDS: Folic Acid 1 MG, Magnesium Sulfate 2,000 MG, Multivitamin - 12 Injection 10 ML in NS w/... IV SCH (08:26)
[2017-06-23] MEDS: LORazepam 1mg tab ORAL PRN (10:23)
--- NOTE | 2017-06-23 11:04 | General Progress Note ---
Assessment/Plan Problem List: (1) Acute alcoholic intoxication ICD Codes: F10.129 - Alcohol abuse with intoxication, unspecified SNOMED: 33285874 (2) Acute encephalopathy ICD Codes: G93.40 - Encephalopathy, unspecified SNOMED: 9729180 (3) Alcohol use disorder ICD Codes: F10.99 - Alcohol use, unspecified with unspecified alcohol-induced disorder SNOMED: 056690, 53886103 (4) Alcohol dependence ICD Codes: F10.20 - Alcohol dependence, uncomplicated SNOMED: 43572352 (5) Altered level of consciousness ICD Codes: R40.4 - Transient alteration of awareness SNOMED: 1592935 (6) Alcohol withdrawal ICD Codes: F10.239 - Alcohol dependence with withdrawal, unspecified SNOMED: 161365863 (7) Alcohol abuse ICD Codes: F10.10 - Alcohol abuse, uncomplicated SNOMED: 46436608, 96123578 (8) Hypernatremia ICD Codes: E87.0 - Hyperosmolality and hypernatremia SNOMED: 93293749 Status: stable Assessment/Plan - Monitor respiratory status closely - Monitor for withdrawal - Zofran PRN n/v - Banana bag q24h - mIVFs, rate decreased as pt now tolerating PO intake - CIWA protocol - Seizure precautions - SW consult for evaluation for detox/rehab. Likely d/c tomorrow with pt's friend Eduardo who will take pt to sober living facility DVT ppx: SCDs FULL CODE A total of 32min of extra time was spent on this case in addition to normal encounter time for care/coordination and counseling. D/w pt/family, RN, SW/CM regarding mgmt and dispo. D/w SW and pt extensively regarding dispo to sober living facility Subjective Date patient seen: Jun 23, 2017 Time patient seen: 11:00 ROS Limited/Unobtainable: No Constitutional: Reports: malaise, weakness HEENT: Reports: no symptoms Cardiovascular: Reports: no symptoms Respiratory: Reports: no symptoms Gastrointestinal/Abdominal: Reports: abdominal pain, nausea Genitourinary: Reports: no symptoms Neurologic/Psychiatric: Reports: headache Endocrine: Reports: no symptoms Hematologic/Lymphatic: Reports: no symptoms Allergies: Coded Allergies: No Known Allergies (Unverified , 06/09/16) Subjective No acute o/n events More awake, alert today. C/o abd pain, headache, nausea. SW working on dispo with pt's friend Eduardo who plans to take pt to sober living facility Objective Last 24 Hour Vital Signs Date Time Temp Pulse Resp B/P (MAP) Pulse Ox O2 Delivery O2 Flow Rate FiO2 06/23/17 04:00 97.6 76 18 109/62 97 Room Air 06/23/17 00:00 97.9 79 18 122/78 97 Room Air 06/22/17 20:00 98.7 83 18 118/76 97 Room Air 06/22/17 16:00 97.0 79 18 117/76 99 Room Air 06/22/17 12:00 97.0 79 18 117/76 98 Room Air Intake and Output 06/22/17 06/23/17 19:00 07:00 Intake Total 2333.5 ml 1735 ml Balance 2333.5 ml 1735 ml Intake Oral 840 ml 360 ml IV Total 1493.5 ml 1375 ml # Voids 2 1 # Bowel Movements 1 1 Laboratory Tests 06/23/17 05:40: White Blood Count 7.1, Red Blood Count 4.30, Hemoglobin 12.4, Hematocrit 38.3, Mean Corpuscular Volume 89, Mean Corpuscular Hemoglobin 28.9, Mean Corpuscular Hemoglobin Concent 32.5, Red Cell Distribution Width 15.7H, Platelet Count 288, Mean Platelet Volume 5.6L, Neutrophils (%) (Auto) 55.3, Lymphocytes (%) (Auto) 30.1, Monocytes (%) (Auto) 11.8H, Eosinophils (%) (Auto) 1.7, Basophils (%) ( Auto) 1.2, Sodium Level 135L, Potassium Level 4.0, Chloride Level 104, Carbon Dioxide Level 23, Anion Gap 8, Blood Urea Nitrogen 10, Creatinine 0.6, Estimat Glomerular Filtration Rate > 60, Glucose Level 91, Calcium Level 8.4L, Phosphorus Level 3.1, Magnesium Level 1.6L Height (Feet): 5 Height (Inches): 6.00 Weight (Pounds): 110 Objective General: alert, cooperative, no distress, appears stated age Head: normocephalic, without obvious abnormality, atraumatic Eyes: conjunctivae/corneas clear. PERRL, EOM's intact Throat: lips, mucosa, and tongue normal. MMM Neck: supple, symmetrical, trachea midline, and no JVD Lungs: clear to auscultation bilaterally Heart: regular rate and rhythm, S1, S2 normal, no murmur, click, rub or gallop Abdomen: soft, non-tender, non-distended, bowel sounds normal; no masses or organomegaly Extremities: extremities normal, atraumatic, no cyanosis or edema Pulses: 2+ and symmetric Skin: skin color, texture, turgor normal; no rashes or lesions Neurologic: grossly normal, no focal deficits Tiffani Golden M.D. Jun 23, 2017 11:04
[2017-06-23 12:00] VITALS: BP 112/78
[2017-06-23 16:00] VITALS: BP 118/74
[2017-06-23 20:12] VITALS: BP 116/74
[2017-06-24 00:45] VITALS: BP 111/60
[2017-06-24 08:00] VITALS: BP 100/62
[2017-06-24] MEDS: Folic Acid 1 MG, Magnesium Sulfate 2,000 MG, Multivitamin - 12 Injection 10 ML in NS w/... IV SCH (08:58)
[2017-06-24] MEDS: Thiamine 100mg in D5W 55ml IVPB SCH (08:59)
[2017-06-24 12:00] VITALS: BP 99/53
[2017-06-24] MEDS ORDERED: ATIVAN1 MG ORAL (15:08)
[2017-06-24 16:00] VITALS: BP 102/73
[2017-06-24] MEDS ORDERED: D5 1/2NS 1000ml IV ONE (18:25)
--- NOTE | 2017-06-24 22:36 | Discharge Summary ---
Discharge Summary Hospital Course Date of Admission Jun 21, 2017 at 21:53 Date of Discharge Jun 24, 2017 at 18:26 Admitting Diagnosis ENCEPHALOPATHY,ALCOHOL INTOXICATION Reason for Hospitalization: acute encephalopathy, alcohol intoxication HPI 27y/o female with pmh of alcohol abuse with dependence who presented with acute alcohol intoxication. Pt was found w/ twin sister on the floor of the hotel room. Pt was found next to her sister on the ground. Paramedics reported alcohol bottles around the room. No drugs found. On arrival to ED, pt is nonverbal and unresponsive to verbal stimuli. She did respond minimally to physical stimuli. Hospital Course Pt was admitted and monitored closely. She was given IVFs, banana bag. Mental status slowly improved and returned to baseline. Pt was seen by social work and given resources for substance abuse rehab. Pt wished to be discharged and go to a sober living by next week. On discharge, pt was hemodynamically stable, tolerating PO and ambulating w/o assistance. Discharge physical exam General: alert, cooperative, no distress, appears stated age Head: normocephalic, without obvious abnormality, atraumatic Eyes: conjunctivae/corneas clear. PERRL, EOM's intact Throat: lips, mucosa, and tongue normal. MMM Neck: supple, symmetrical, trachea midline, and no JVD Lungs: clear to auscultation bilaterally Heart: regular rate and rhythm, S1, S2 normal, no murmur, click, rub or gallop Abdomen: soft, non-tender, non-distended, bowel sounds normal; no masses or organomegaly Extremities: extremities normal, atraumatic, no cyanosis or edema Pulses: 2+ and symmetric Skin: skin color, texture, turgor normal; no rashes or lesions Neurologic: grossly normal, no focal deficits Discharge Medications Continued Medications: Folic Acid* (Folic Acid*) 1 Mg Tablet 1 MG ORAL DAILY, #30 TAB Lorazepam* (Ativan*) 1 Mg Tablet 1 MG ORAL Q12HR, #10 TAB Multivitamins* (Multivitamins*) 1 Each Tablet 1 TAB ORAL DAILY, #30 TAB 0 Refills Thiamine Hcl* (Vitamin B-1*) 100 Mg Tablet 100 MG ORAL DAILY, #30 TAB 0 Refills Discontinued Medications: Chlordiazepoxide Hcl* (Librium*) 10 Mg Capsule 25 MG ORAL DAILY for 5 Days, #5 CAP 0 Refills Discharge Condition Upon Discharge: stable Discharge Disposition Patient was discharged to Home (01) Discharge Diagnoses: (1) Acute encephalopathy (2) Acute alcoholic intoxication (3) Alcohol abuse (4) Alcohol dependence (5) Alcohol use disorder (6) Hypernatremia Tiffani Golden M.D. Jun 24, 2017 22:36
== END 2017-06-24 18:26 | disposition home or self-care (01) | DRG 896 ==
LOC: EDBD 18:16 → EMR 19:32 → 3E 21:53 → EDBEDREQ 06-22 00:16
DX: F10.229 Alcohol dependence with intoxication, unspecified (principal); G93.40 Encephalopathy, unspecified; F10.239 Alcohol dependence with withdrawal, unspecified; E87.0 Hyperosmolality and hypernatremia; Y90.8 Blood alcohol level of 240 mg/100 ml or more
CPT/HCPCS: 36415; 80048; 80053; 80307; 80329; 81025; 83735; 84100; 85025; 99285; J2405

== ENCOUNTER 2017-10-18 17:18 | Inpatient (IN) | payer OTHER ==
[~2017-10-18] VITALS: Ht 167.6 cm; Wt 56.7 kg
[~2017-10-18 17:18] MED LIST changes: +ATIVAN1 MG ORAL; +UNOBMED
[2017-10-18 17:28] VITALS: BP 115/62
[2017-10-18 18:14] LABS: BASOPHILS % (AUTO) 1.4 % (0.0-2.0); EOSINOPHILS % (AUTO) 2.5 % (0.0-3.0); HEMATOCRIT 38.7 % (37.0-47.0); HEMOGLOBIN 13.1 G/DL (12.0-16.0); LYMPHOCYTES % (AUTO) 42.7 % (20.0-45.0); MEAN CORPUSCULAR VOLUME 88 FL (80-99); MONOCYTES % (AUTO) 3.1 % (1.0-10.0); NEUTROPHILS % (AUTO) 50.3 % (45.0-75.0); PLATELET COUNT 434 K/UL (150-450); RED CELL DISTRIBUTION WIDTH 15.7 % (11.6-14.8); WHITE BLOOD COUNT 8.4 K/UL (4.8-10.8)
[2017-10-18 18:48] LABS: ANION GAP 13 mmol/L (5-15); BLOOD UREA NITROGEN 14 mg/dL (7-18); CALCIUM 7.9 MG/DL (8.5-10.1); CARBON DIOXIDE 24 MMOL/L (21-32); CHLORIDE 109 MMOL/L (98-107); CREATININE 0.8 MG/DL (0.55-1.30); POTASSIUM 3.8 MMOL/L (3.5-5.1); SODIUM 146 MMOL/L (136-145)
[2017-10-18 18:52] LABS: ALANINE AMINOTRANSFERASE 19 U/L (12-78); ALBUMIN 3.6 G/DL (3.4-5.0); ALBUMIN/GLOBULIN RATIO 0.9 (1.0-2.7); ALKALINE PHOSPHATASE 54 U/L (46-116); ASPARTATE AMINO TRANSFERASE 20 U/L (15-37); BILIRUBIN,TOTAL 0.1 MG/DL (0.2-1.0)
[2017-10-18 19:30] VITALS: BP 101/54
[2017-10-18 21:30] VITALS: BP 108/56
--- NOTE | 2017-10-18 21:57 | Emergency Room Report ---
History of Present Illness General Chief Complaint: Substance Abuse Source: Patient Present Illness HPI This patient and her sister well-known to [facility]. Both her and her sister severe polysubstance abuse. The patient went on a drinking and drug binge and became obtunded and was minimally responsive. The patient is brought in by EMS. She did initially give her name. However she was only localizing to pain upon my evaluation. There is no other complaints. Allergies: Coded Allergies: No Known Allergies (Unverified , 06/09/16) Patient History Social History: Reports: alcohol use, drug use Last Menstrual Period: Unable to obtain Reviewed Nursing Documentation: PMH: Agreed; PSxH: Agreed Nursing Documentation-PMH Past Medical History: No Stated History Hx Cardiac Problems: No Hx Cancer: No Hx Gastrointestinal Problems: No Hx Neurological Problems: No Review of Systems All Other Systems: limited Physical Exam Vital Signs Date Time Temp Pulse Resp B/P (MAP) Pulse Ox O2 Delivery O2 Flow Rate FiO2 10/18/17 17:18 98.4 86 14 108/62 98 Room Air 98.4 Sp02 EP Interpretation: reviewed, normal General Appearance: Stupor Head: normocephalic, atraumatic Eyes: bilateral eye normal inspection, bilateral eye PERRL ENT: no angioedema Neck: normal inspection, full range of motion Respiratory: chest non-tender, lungs clear, normal breath sounds, no respiratory distress, no retraction, no accessory muscle use, speaking full sentences Cardiovascular #1: regular rate, rhythm, no edema Gastrointestinal: normal inspection, normal bowel sounds, non-distended, no guarding, no rebound Rectal: deferred Musculoskeletal: normal inspection Neurologic: other - Stupor/non-focal Skin: normal color, no rash, warm/dry, well hydrated Medical Decision Making Diagnostic Impression: Primary Impression: Acute alcoholic intoxication Additional Impression: Benzodiazepine abuse ER Course This patient presents with severe alcohol intoxication. The patient's blood alcohol was greater than 600. She is also positive for benzodiazepines. Patient is well-known to [facility] for alcohol abuse and poisoning. The patient's blood alcohol is so high that this patient will require admission for further monitoring. Laboratory Tests Test 10/18/17 17:50 White Blood Count 8.4 K/UL (4.8-10.8) Red Blood Count 4.40 M/UL (4.20-5.40) Hemoglobin 13.1 G/DL (12.0-16.0) Hematocrit 38.7 % (37.0-47.0) Mean Corpuscular Volume 88 FL (80-99) Mean Corpuscular Hemoglobin 29.6 PG (27.0-31.0) Mean Corpuscular Hemoglobin Concent 33.7 G/DL (32.0-36.0) Red Cell Distribution Width 15.7 % (11.6-14.8) H Platelet Count 434 K/UL (150-450) Mean Platelet Volume 5.4 FL (6.5-10.1) L Neutrophils (%) (Auto) 50.3 % (45.0-75.0) Lymphocytes (%) (Auto) 42.7 % (20.0-45.0) Monocytes (%) (Auto) 3.1 % (1.0-10.0) Eosinophils (%) (Auto) 2.5 % (0.0-3.0) Basophils (%) (Auto) 1.4 % (0.0-2.0) Urine HCG, Qualitative Negative (NEGATIVE) Sodium Level 146 MMOL/L (136-145) H Potassium Level 3.8 MMOL/L (3.5-5.1) Chloride Level 109 MMOL/L (98-107) H Carbon Dioxide Level 24 MMOL/L (21-32) Anion Gap 13 mmol/L (5-15) Blood Urea Nitrogen 14 mg/dL (7-18) Creatinine 0.8 MG/DL (0.55-1.30) Estimate Glomerular Filtration Rate > 60 mL/min (>60) Glucose Level 98 MG/DL (74-106) Calcium Level 7.9 MG/DL (8.5-10.1) L Total Bilirubin 0.1 MG/DL (0.2-1.0) L Aspartate Amino Transferase (AST) 20 U/L (15-37) Alanine Aminotransferase (ALT) 19 U/L (12-78) Alkaline Phosphatase 54 U/L (46-116) Total Protein 7.5 G/DL (6.4-8.2) Albumin 3.6 G/DL (3.4-5.0) Globulin 3.9 g/dL Albumin/Globulin Ratio 0.9 (1.0-2.7) L Salicylates Level 1.8 ug/mL (2.8-20) L Urine Opiates Screen Negative (NEGATIVE) Acetaminophen Level < 2 MCG/ML (10-30) L Urine Barbiturates Screen Negative (NEGATIVE) Phencyclidine (PCP) Screen Negative (NEGATIVE) Urine Amphetamines Screen Negative (NEGATIVE) Urine Benzodiazepines Screen Positive (NEGATIVE) H Urine Cocaine Screen Negative (NEGATIVE) Urine Marijuana (THC) Screen Negative (NEGATIVE) Serum Alcohol > 600 mg/dL EKG Diagnostic Results Rate: normal Rhythm: NSR ST Segments: no acute changes Rhythm Strip Diag. Results EP Interpretation: yes Rate: 70's Rhythm: NSR, no PVC's, no ectopy Last Vital Signs Date Time Temp Pulse Resp B/P (MAP) Pulse Ox O2 Delivery O2 Flow Rate FiO2 10/18/17 17:28 98.4 73 18 115/62 95 Room Air 98.4 Disposition: ADMITTED INPATIENT Condition: Serious Referrals: NOT CHOSEN ANNETTE/,REFERRING (PCP) DAVID TAPIA D.O. October 18, 2017 21:57
[2017-10-18 23:00] VITALS: BP 100/55
[2017-10-19] VITALS (7 sets, daily range): BP systolic 102–118; BP diastolic 56–82
[2017-10-19] MEDS: D5 1/2NS 1,000 ML IV SCH ×3 (04:04→23:15)
[2017-10-19] MEDS ORDERED: Thiamine HCl 100 MG, Folic Acid 1 MG, Magnesium Sulfate 2,000 MG, Multivitamin - 12 Inj... IV SCH ×5 (08:00)
[2017-10-19 09:18] LABS: BASOPHILS % (AUTO) 1.2 % (0.0-2.0); LYMPHOCYTES % (AUTO) 16.4 % (20.0-45.0); MEAN CORPUSCULAR VOLUME 89 FL (80-99); NEUTROPHILS % (AUTO) 77.5 % (45.0-75.0); PLATELET COUNT 429 K/UL (150-450); RED CELL DISTRIBUTION WIDTH 15.8 % (11.6-14.8); WHITE BLOOD COUNT 17.5 K/UL (4.8-10.8)
[2017-10-19] MEDS: Thiamine 100mg IVPB (Q24H) IVPB SCH ×2 (09:18)
[2017-10-19 09:23] LABS: ANION GAP 13 mmol/L (5-15); BLOOD UREA NITROGEN 17 mg/dL (7-18); CARBON DIOXIDE 24 MMOL/L (21-32); CHLORIDE 108 MMOL/L (98-107); CREATININE 0.8 MG/DL (0.55-1.30); POTASSIUM 3.6 MMOL/L (3.5-5.1); SODIUM 145 MMOL/L (136-145)
[2017-10-19] MEDS: Folic Acid 1 MG, Magnesium Sulfate 2,000 MG, Multivitamin - 12 Injection 10 ML in NS w/... IV SCH (09:29)
[2017-10-19] MEDS: LORazepam Inj 2mg/ml 1ml IV PRN ×3 (11:35→21:13)
[2017-10-19 12:24] LABS: APPEARANCE,URINE CLEAR; BILIRUBIN, URINE NEGATIVE (NEGATIVE); COLOR,URINE PALE YELLOW; GLUCOSE, URINE (UA) NEGATIVE (NEGATIVE); KETONES,URINE 1+ (NEGATIVE); LEUKOCYTE ESTERASE ,URINE 1+ (NEGATIVE); NITRITE,URINE POSITIVE (NEGATIVE); PH,URINE 6.5 (4.5-8.0); PROTEIN,URINE NEGATIVE (NEGATIVE); UROBILINOGEN,URINE NORMAL MG/DL (0.0-1.0)
--- NOTE | 2017-10-19 14:17 | History and Physical ---
History of Present Illness General Date patient seen: October 19, 2017 Time patient seen: 10:22 Reason for Hospitalization: Substance Abuse Present Illness HPI 27 y/o female with a PMH of alcohol abuse presented to the ER for acute alcohol intoxication and altered mental status. Patient is well-known to us and frequently returns for similar symptoms. Her last visit to [facility] [place] was 06/22/17 where she was treated for acute alcohol intoxication/alcohol withdrawal and was given resources for rehab programs. Patient states that she was in rehab for several months and did not drink during this time. She states this is her first relapse after her incident in May. Patient was noted to have an alcohol level > 600 and was given ativan, IVF, and banana bag. Patient was further admitted for alcohol withdrawal. Currently, patient reports nausea and vomiting. Denies abdominal pain, chest pain, sob. Denies fevers, chills, dysuria , diarrhea, constipation. Denies suicidal or homicidal ideations. Allergies: Coded Allergies: No Known Allergies (Unverified , 06/09/16) Medication History Scheduled Folic Acid* (Folic Acid*), 1 MG ORAL DAILY, (Reported) Lorazepam* (Ativan*), 1 MG ORAL Q12HR, (Reported) Multivitamins* (Multivitamins*), 1 TAB ORAL DAILY, (Reported) Thiamine Hcl* (Vitamin B-1*), 100 MG ORAL DAILY, (Reported) Miscellaneous Medications Unable to Obtain Medications (Unable To Obtain Meds), (Reported) Patient History History Provided By: Patient Healthcare decision maker Resuscitation status Full Code Advanced Directive on File Review of Systems All Other Systems: negative except mentioned in HPI Physical Exam General Appearance: alert, other - nervous HEENT: normocephalic, atraumatic Neck: non-tender, normal alignment, supple Respiratory/Chest: chest wall non-tender, lungs clear, normal breath sounds Cardiovascular/Chest: normal peripheral pulses, normal rate, regular rhythm Abdomen: normal bowel sounds, non tender, soft Extremities: normal range of motion, non-tender Skin Exam: normal pigmentation, warm/dry Neurologic: enamel drier II-XII grossly normal, no motor/sensory deficits, alert, oriented x 3, other - +tremors Last 24 Hour Vital Signs Date Time Temp Pulse Resp B/P (MAP) Pulse Ox O2 Delivery O2 Flow Rate FiO2 10/19/17 12:00 95 10/19/17 11:54 99.0 106 20 112/69 97 Room Air 99.0 10/19/17 08:00 92 10/19/17 08:00 98.8 96 20 104/69 94 Room Air 98.8 10/19/17 04:00 97.3 89 20 102/59 95 Room Air 97.3 10/19/17 04:00 84 10/19/17 02:15 97.7 91 16 118/57 94 Room Air 97.7 10/19/17 01:40 98.3 77 15 103/56 96 Room Air 98.4 10/19/17 01:00 77 15 103/56 96 Room Air 10/18/17 23:00 83 16 100/55 96 Room Air 10/18/17 21:30 84 17 108/56 96 Room Air 10/18/17 19:30 89 17 101/54 95 Room Air 10/18/17 17:28 98.4 73 18 115/62 95 Room Air 98.4 10/18/17 17:18 98.4 86 14 108/62 98 Room Air 98.4 Intake and Output 10/18/17 10/19/17 19:00 07:00 Intake Total 300 ml Output Total 300 ml 0 ml Balance -300 ml 300 ml Intake IV Total 300 ml Output Urine Total 300 ml 0 ml Laboratory Tests Test 10/18/17 17:50 10/19/17 08:15 10/19/17 11:30 10/19/17 12:10 White Blood Count 8.4 K/UL (4.8-10.8) 17.5 K/UL (4.8-10.8) #H Red Blood Count 4.40 M/UL (4.20-5.40) 4.50 M/UL (4.20-5.40) Hemoglobin 13.1 G/DL (12.0-16.0) 13.0 G/DL (12.0-16.0) Hematocrit 38.7 % (37.0-47.0) 40.0 % (37.0-47.0) Mean Corpuscular Volume 88 FL (80-99) 89 FL (80-99) Mean Corpuscular Hemoglobin 29.6 PG (27.0-31.0) 28.9 PG (27.0-31.0) Mean Corpuscular Hemoglobin Concent 33.7 G/DL (32.0-36.0) 32.6 G/DL (32.0-36.0) Red Cell Distribution Width 15.7 % (11.6-14.8) H 15.8 % (11.6-14.8) H Platelet Count 434 K/UL (150-450) 429 K/UL (150-450) Mean Platelet Volume 5.4 FL (6.5-10.1) L 5.9 FL (6.5-10.1) L Neutrophils (%) (Auto) 50.3 % (45.0-75.0) 77.5 % (45.0-75.0) H Lymphocytes (%) (Auto) 42.7 % (20.0-45.0) 16.4 % (20.0-45.0) L Monocytes (%) (Auto) 3.1 % (1.0-10.0) 4.0 % (1.0-10.0) Eosinophils (%) (Auto) 2.5 % (0.0-3.0) 1.0 % (0.0-3.0) Basophils (%) (Auto) 1.4 % (0.0-2.0) 1.2 % (0.0-2.0) Urine HCG, Qualitative Negative (NEGATIVE) Sodium Level 146 MMOL/L (136-145) H 145 MMOL/L (136-145) Potassium Level 3.8 MMOL/L (3.5-5.1) 3.6 MMOL/L (3.5-5.1) Chloride Level 109 MMOL/L (98-107) H 108 MMOL/L (98-107) H Carbon Dioxide Level 24 MMOL/L (21-32) 24 MMOL/L (21-32) Anion Gap 13 mmol/L (5-15) 13 mmol/L (5-15) Blood Urea Nitrogen 14 mg/dL (7-18) 17 mg/dL (7-18) Creatinine 0.8 MG/DL (0.55-1.30) 0.8 MG/DL (0.55-1.30) Estimat Glomerular Filtration Rate > 60 mL/min (>60) > 60 mL/min (>60) Glucose Level 98 MG/DL (74-106) 129 MG/DL (74-106) H Calcium Level 7.9 MG/DL (8.5-10.1) L 8.0 MG/DL (8.5-10.1) L Total Bilirubin 0.1 MG/DL (0.2-1.0) L Aspartate Amino Transf (AST/SGOT) 20 U/L (15-37) Alanine Aminotransferase (ALT/SGPT) 19 U/L (12-78) Alkaline Phosphatase 54 U/L (46-116) Total Protein 7.5 G/DL (6.4-8.2) Albumin 3.6 G/DL (3.4-5.0) Globulin 3.9 g/dL Albumin/Globulin Ratio 0.9 (1.0-2.7) L Salicylates Level 1.8 ug/mL (2.8-20) L Urine Opiates Screen Negative (NEGATIVE) Acetaminophen Level < 2 MCG/ML (10-30) L Urine Barbiturates Screen Negative (NEGATIVE) Phencyclidine (PCP) Screen Negative (NEGATIVE) Urine Amphetamines Screen Negative (NEGATIVE) Urine Benzodiazepines Screen Positive (NEGATIVE) H Urine Cocaine Screen Negative (NEGATIVE) Urine Marijuana (THC) Screen Negative (NEGATIVE) Serum Alcohol > 600 mg/dL Urine Color Pale yellow Urine Appearance Clear Urine pH 6.5 (4.5-8.0) Urine Specific B[place] 1.010 (1.005-1.035) Urine Protein Negative (NEGATIVE) Urine Glucose (UA) Negative (NEGATIVE) Urine Ketones 1+ (NEGATIVE) H Urine Occult Blood Negative (NEGATIVE) Urine Nitrite Positive (NEGATIVE) H Urine Bilirubin Negative (NEGATIVE) Urine Urobilinogen Normal MG/DL (0.0-1.0) Urine Leukocyte Esterase 1+ (NEGATIVE) H Urine RBC 0-2 /HPF (0 - 2) Urine WBC 2-4 /HPF (0 - 2) Urine Squamous Epithelial Cells Few /LPF (NONE/OCC) Urine Bacteria Moderate /HPF (NONE) H Lactic Acid Level 2.90 mmol/L (0.66-2.22) H Height (Feet): 5 Height (Inches): 6.00 Weight (Pounds): 122 Medications Current Medications Medications (Trade) Dose Ordered Sig/Glenny Route PRN Reason Start Time Stop Time Status Last Admin Dose Admin Acetaminophen (Tylenol) 650 mg Q6H PRN ORAL Mild Pain/Temp > 100.5 10/19/17 03:15 11/18/17 03:14 Dextrose/Sodium Chloride 1,000 ml @ 100 mls/hr Q10H IV 10/19/17 03:15 11/18/17 03:14 10/19/17 04:04 Folic Acid 1 mg/ Magnesium Sulfate 2000 mg/ Multivitamins 10 ml/Sodium Chloride 1,014.2 ml @ 100 mls/ hr Q24H IV 10/19/17 09:00 11/18/17 08:59 10/19/17 09:29 Lorazepam (Ativan 2mg/ml 1ml) 1 mg Q4H PRN IV For Seizures 10/19/17 03:15 10/26/17 03:14 10/19/17 11:35 Ondansetron HCl (Zofran) 4 mg Q4H PRN IVP Nausea & Vomiting 10/19/17 12:00 11/18/17 11:59 Thiamine HCl 100 mg/Dextrose 56 ml @ 112 mls/hr Q24H IVPB 10/19/17 09:00 11/18/17 08:59 10/19/17 09:18 Assessment/Plan Problem List: (1) Leukocytosis ICD Codes: D72.829 - Elevated white blood cell count, unspecified SNOMED: 976908816, 002880642 (2) Alcohol poisoning ICD Codes: T51.91XA - Toxic effect of unspecified alcohol, accidental ( unintentional), initial encounter SNOMED: 00230120 (3) Benzodiazepine abuse ICD Codes: F13.10 - Sedative, hypnotic or anxiolytic abuse, uncomplicated SNOMED: 089157676, 697220362 (4) Alcohol withdrawal ICD Codes: F10.239 - Alcohol dependence with withdrawal, unspecified SNOMED: 405790550 (5) Hypernatremia ICD Codes: E87.0 - Hyperosmolality and hypernatremia SNOMED: 01550850 (6) Acute encephalopathy ICD Codes: G93.40 - Encephalopathy, unspecified SNOMED: 5378382 (7) Sepsis ICD Codes: A41.9 - Sepsis, unspecified organism SNOMED: 74616670 (8) UTI (urinary tract infection) ICD Codes: N39.0 - Urinary tract infection, site not specified SNOMED: 35187780 Status: stable, progressing Assessment/Plan - Admit to tele - Psychiatry consulted - Valium prn - Banana bag qd - IVF - folate, thiamine - IV CTX. F/u urine cx. - trend CBC. check CXR, UA, blood cx x 2, lactic acid - SW consulted for AAA/rehab program DVT Prophylaxis: SCD Code Status: Full Hospital Classification Declaration: Based on this initial evaluation, and depending on the patient's clinical course, I anticipate that this patient will require hospitalization for 1-2 days for acute alcohol intoxication, leukocytosis, and close respiratory/hemodynamic monitoring. Disposition: Once the patient is stable to leave the hospital, I anticipate the patient will likely be discharged to the following environment: home vs. alcoholic rehab program I spent 72 minutes on this patient's case, and 38 minutes were dedicated to counseling and/or care coordination. Discussed with patient/family, nursing staff, SW/CM, and psychiatrist regarding clinical status, treatment course, and disposition planning. Time of note may not reflect time of encounter. Almaz Mcclellan NP October 19, 2017 14:17
[2017-10-19] MEDS ORDERED: cefTRIAXone 1 GM in NS 55 ML IVPB SCH (16:00)
--- NOTE | 2017-10-19 17:34 | Diagnostic Imaging Report ---
Indication: Cough Technique: One view of the chest Comparison: none Findings: Lungs and pleural spaces are clear. Heart size is normal Impression: No acute process
--- NOTE | 2017-10-19 23:14 | Consultation ---
History of Present Illness General Date patient seen: October 19, 2017 Chief Complaint: Substance Abuse Present Illness HPI 27 y/o female with a PMH of alcohol abuse presented to the ER for acute alcohol intoxication and altered mental status. The pt is a frequent flyer the pt and her sister have binging on drugs and alcohol.. the pt was cooperative and stated that she was having fun. the pt denied SI. the pt is not at imminent dts. the pt has poor insight. calm and cooperative Allergies: Coded Allergies: No Known Allergies (Unverified , 06/09/16) Medication History Scheduled Folic Acid* (Folic Acid*), 1 MG ORAL DAILY, (Reported) Lorazepam* (Ativan*), 1 MG ORAL Q12HR, (Reported) Multivitamins* (Multivitamins*), 1 TAB ORAL DAILY, (Reported) Thiamine Hcl* (Vitamin B-1*), 100 MG ORAL DAILY, (Reported) Miscellaneous Medications Unable to Obtain Medications (Unable To Obtain Meds), (Reported) Patient History Limited by: medical condition History Provided By: Patient, Family Member, PMD Healthcare decision maker Resuscitation status Full Code Advanced Directive on File Past Medical/Surgical History Past Medical/Surgical History: (1) Benzodiazepine abuse (2) Polysubstance abuse (3) Leukocytosis (4) Alcohol poisoning (5) Sepsis (6) UTI (urinary tract infection) (7) Hypomagnesemia (8) Alcoholic hepatitis (9) Alcohol dependence (10) Alcohol abuse (11) Acute alcoholic intoxication (12) Alcohol withdrawal (13) Alcohol use disorder (14) Hypernatremia (15) Acute encephalopathy Review of Systems Psychiatric: Reports: anxiety, emotional problems Physical Exam General Appearance: no apparent distress, alert Neurologic: oriented x 3, depressed affect Last 24 Hour Vital Signs Date Time Temp Pulse Resp B/P (MAP) Pulse Ox O2 Delivery O2 Flow Rate FiO2 10/19/17 20:00 99.3 104 20 110/82 98 Room Air 99.3 10/19/17 16:00 98.8 109 19 116/78 95 Room Air 98.8 10/19/17 16:00 99 10/19/17 12:00 95 10/19/17 11:54 99.0 106 20 112/69 97 Room Air 99.0 10/19/17 08:00 92 10/19/17 08:00 98.8 96 20 104/69 94 Room Air 98.8 10/19/17 04:00 97.3 89 20 102/59 95 Room Air 97.3 10/19/17 04:00 84 10/19/17 02:15 97.7 91 16 118/57 94 Room Air 97.7 10/19/17 01:40 98.3 77 15 103/56 96 Room Air 98.4 10/19/17 01:00 77 15 103/56 96 Room Air Intake and Output 10/18/17 10/19/17 19:00 07:00 Intake Total 300 ml Output Total 300 ml 0 ml Balance -300 ml 300 ml Intake IV Total 300 ml Output Urine Total 300 ml 0 ml Laboratory Tests Test 10/19/17 08:15 10/19/17 11:30 10/19/17 12:10 10/19/17 15:30 White Blood Count 17.5 K/UL (4.8-10.8) #H Red Blood Count 4.50 M/UL (4.20-5.40) Hemoglobin 13.0 G/DL (12.0-16.0) Hematocrit 40.0 % (37.0-47.0) Mean Corpuscular Volume 89 FL (80-99) Mean Corpuscular Hemoglobin 28.9 PG (27.0-31.0) Mean Corpuscular Hemoglobin Concent 32.6 G/DL (32.0-36.0) Red Cell Distribution Width 15.8 % (11.6-14.8) H Platelet Count 429 K/UL (150-450) Mean Platelet Volume 5.9 FL (6.5-10.1) L Neutrophils (%) (Auto) 77.5 % (45.0-75.0) H Lymphocytes (%) (Auto) 16.4 % (20.0-45.0) L Monocytes (%) (Auto) 4.0 % (1.0-10.0) Eosinophils (%) (Auto) 1.0 % (0.0-3.0) Basophils (%) (Auto) 1.2 % (0.0-2.0) Sodium Level 145 MMOL/L (136-145) Potassium Level 3.6 MMOL/L (3.5-5.1) Chloride Level 108 MMOL/L (98-107) H Carbon Dioxide Level 24 MMOL/L (21-32) Anion Gap 13 mmol/L (5-15) Blood Urea Nitrogen 17 mg/dL (7-18) Creatinine 0.8 MG/DL (0.55-1.30) Estimat Glomerular Filtration Rate > 60 mL/min (>60) Glucose Level 129 MG/DL (74-106) H Calcium Level 8.0 MG/DL (8.5-10.1) L Urine Color Pale yellow Urine Appearance Clear Urine pH 6.5 (4.5-8.0) Urine Specific Cyrus 1.010 (1.005-1.035) Urine Protein Negative (NEGATIVE) Urine Glucose (UA) Negative (NEGATIVE) Urine Ketones 1+ (NEGATIVE) H Urine Occult Blood Negative (NEGATIVE) Urine Nitrite Positive (NEGATIVE) H Urine Bilirubin Negative (NEGATIVE) Urine Urobilinogen Normal MG/DL (0.0-1.0) Urine Leukocyte Esterase 1+ (NEGATIVE) H Urine RBC 0-2 /HPF (0 - 2) Urine WBC 2-4 /HPF (0 - 2) Urine Squamous Epithelial Cells Few /LPF (NONE/OCC) Urine Bacteria Moderate /HPF (NONE) H Lactic Acid Level 2.90 mmol/L (0.66-2.22) H 1.70 mmol/L (0.66-2.22) Height (Feet): 5 Height (Inches): 6.00 Weight (Pounds): 122 Medications Current Medications Medications (Trade) Dose Ordered Sig/Glenny Route PRN Reason Start Time Stop Time Status Last Admin Dose Admin Acetaminophen (Tylenol) 650 mg Q6H PRN ORAL Mild Pain/Temp > 100.5 10/19/17 03:15 11/18/17 03:14 Ceftriaxone Sodium 1 gm/ Sodium Chloride 55 ml @ 110 mls/hr Q24H IVPB 10/19/17 16:00 10/26/17 23:59 10/19/17 16:16 Dextrose/Sodium Chloride 1,000 ml @ 100 mls/hr Q10H IV 10/19/17 03:15 11/18/17 03:14 10/19/17 04:04 Diazepam (Valium) 10 mg EVERY 4 HOURS PRN ORAL For Anxiety 10/19/17 22:15 10/26/17 22:14 Folic Acid 1 mg/ Magnesium Sulfate 2000 mg/ Multivitamins 10 ml/Sodium Chloride 1,014.2 ml @ 100 mls/ hr Q24H IV 10/19/17 09:00 11/18/17 08:59 10/19/17 09:29 Ondansetron HCl (Zofran) 4 mg Q4H PRN IVP Nausea & Vomiting 10/19/17 12:00 11/18/17 11:59 Thiamine HCl 100 mg/Dextrose 56 ml @ 112 mls/hr Q24H IVPB 10/19/17 09:00 11/18/17 08:59 10/19/17 09:18 Assessment/Plan Status: stable Assessment/Plan polysubstance dependence anxiety d/o not at imminent dts Valium folate thiamine Renee Kearns M.D. October 19, 2017 23:14
[2017-10-20] VITALS: BP 108/66
[2017-10-20] MEDS ORDERED: TraZODone HCl 25 mg tablet ORAL SCH ×2 (00:48→21:00)
[2017-10-20 07:58] LABS: EOSINOPHILS % (AUTO) 2.9 % (0.0-3.0); HEMATOCRIT 36.1 % (37.0-47.0); HEMOGLOBIN 11.9 G/DL (12.0-16.0); LYMPHOCYTES % (AUTO) 22.7 % (20.0-45.0); MEAN CORPUSCULAR VOLUME 89 FL (80-99); MONOCYTES % (AUTO) 6.7 % (1.0-10.0); NEUTROPHILS % (AUTO) 66.7 % (45.0-75.0); PLATELET COUNT 353 K/UL (150-450); RED BLOOD COUNT 4.08 M/UL (4.20-5.40); RED CELL DISTRIBUTION WIDTH 15.3 % (11.6-14.8); WHITE BLOOD COUNT 10.7 K/UL (4.8-10.8)
[2017-10-20 08:00] VITALS: BP 107/68
[2017-10-20 08:37] LABS: BLOOD UREA NITROGEN 15 mg/dL (7-18); CHLORIDE 105 MMOL/L (98-107); CREATININE 0.7 MG/DL (0.55-1.30); SODIUM 136 MMOL/L (136-145)
[2017-10-20] MEDS: D5 1/2NS 1,000 ML IV SCH (09:15)
[2017-10-20 09:27] LABS: ANION GAP 11 mmol/L (5-15); CARBON DIOXIDE 20 MMOL/L (21-32)
[2017-10-20] MEDS: Thiamine 100mg IVPB (Q24H) IVPB SCH ×2 (09:32)
[2017-10-20] MEDS: Folic Acid 1 MG, Magnesium Sulfate 2,000 MG, Multivitamin - 12 Injection 10 ML in NS w/... IV SCH (09:32)
[2017-10-20] MEDS ORDERED: CEPHALEXIN500 MG ORAL (11:28)
--- NOTE | 2017-10-20 11:29 | Discharge Instructions ---
Discharge Instructions Discharge Instructions Follow up with: F/u with outpatient psychiatrist. For Congestive Heart Failure Reminder Report to your physician any weight gain of 5 pounds or more in one week. Almaz Mcclellan NP October 20, 2017 11:29
[2017-10-20 12:00] VITALS: BP 99/68
--- NOTE | 2017-10-20 12:54 | General Progress Note ---
Assessment/Plan Status: stable Assessment/Plan polysubstance dependence anxiety d/o not at imminent dts Valium folate thiamine Subjective Date patient seen: October 20, 2017 Neurologic/Psychiatric: Reports: anxiety, depressed, emotional problems Allergies: Coded Allergies: No Known Allergies (Unverified , 06/09/16) Objective Last 24 Hour Vital Signs Date Time Temp Pulse Resp B/P (MAP) Pulse Ox O2 Delivery O2 Flow Rate FiO2 10/20/17 12:00 97.9 73 18 99/68 99 Room Air 97.9 10/20/17 08:00 66 10/20/17 08:00 97.7 61 18 107/68 99 Room Air 97.7 10/20/17 04:00 71 10/20/17 00:00 98.1 94 20 108/66 96 Room Air 98.1 10/20/17 00:00 78 10/19/17 20:00 102 10/19/17 20:00 99.3 104 20 110/82 98 Room Air 99.3 10/19/17 16:00 98.8 109 19 116/78 95 Room Air 98.8 10/19/17 16:00 99 Intake and Output 10/19/17 10/20/17 19:00 07:00 Intake Total 1211 ml Balance 1211 ml Intake IV Total 1211 ml # Voids 5 5 Laboratory Tests 10/19/17 15:30: Lactic Acid Level 1.70 10/20/17 06:30: White Blood Count 10.7, Red Blood Count 4.08L, Hemoglobin 11.9L, Hematocrit 36.1L, Mean Corpuscular Volume 89, Mean Corpuscular Hemoglobin 29.1, Mean Corpuscular Hemoglobin Concent 32.8, Red Cell Distribution Width 15.3H, Platelet Count 353, Mean Platelet Volume 6.0L, Neutrophils (%) (Auto) 66.7, Lymphocytes (%) (Auto) 22.7, Monocytes (%) (Auto) 6.7, Eosinophils (%) (Auto) 2.9, Basophils (%) (Auto) 1.0, Sodium Level 136, Potassium Level 4.0, Chloride Level 105, Carbon Dioxide Level 20L, Anion Gap 11, Blood Urea Nitrogen 15, Creatinine 0.7, Estimat Glomerular Filtration Rate > 60, Glucose Level 95, Calcium Level 8.0L Height (Feet): 5 Height (Inches): 6.00 Weight (Pounds): 125 General Appearance: no apparent distress, alert Neurologic: oriented x 3, responsive, depressed affect Renee Kearns M.D. October 20, 2017 12:54
--- NOTE | 2017-10-20 14:57 | Discharge Summary ---
Discharge Summary Hospital Course Date of Admission October 18, 2017 at 20:16 Date of Discharge 10/20/17 Admitting Diagnosis ETOH poisoning/polysubstance overdose. HPI Citlali Michel is a 27 year old female who was admitted on October 18, 2017 at 20: 16 for Etoh Poisoning/Polysubstance Overdose 27 y/o female with a PMH of alcohol abuse presented to the ER for acute alcohol intoxication and altered mental status. Patient is well-known to us and frequently returns for similar symptoms. Her last visit to [facility] [place] was 06/22/17 where she was treated for acute alcohol intoxication/alcohol withdrawal and was given resources for rehab programs. Patient states that she was in rehab for several months and did not drink during this time. She states this is her first relapse after her incident in May. Patient was noted to have an alcohol level > 600 and was given ativan, IVF, and banana bag. Patient was further admitted for alcohol withdrawal. Currently, patient reports nausea and vomiting. Denies abdominal pain, chest pain, sob. Denies fevers, chills, dysuria , diarrhea, constipation. Denies suicidal or homicidal ideations. Consultations Psychiatry, Dr. Kearns Procedures None Hospital Course Patient was admitted for alcohol withdrawal/acute alcohol intoxication to telemetry. Patient was started on IVF, banana bag, thiamine, and folate. Patient was also given valium prn. Patient denied any suicidal or homicidal ideations. Patient was cleared per psychiatry. Patient then was noted to experience fevers and chills with Tmax 99. Patient also noted to have leukocytosis and UA was consistent with a UTI. Urine cx showed gram negative bacilli and patient was given IV ceftriaxone. Leukocytosis resolved and patient was afebrile thereafter. Patient was therefore switched to oral antibiotics and was medically cleared for discharge to inpatient psychiatric facility for acute rehab. Discharge Medications New Medications: Cephalexin* (Keflex*) 500 Mg Capsule 500 MG ORAL EVERY 12 HOURS for 6 Days, #12 CAP 0 Refills Continued Medications: Folic Acid* (Folic Acid*) 1 Mg Tablet 1 MG ORAL DAILY, #30 TAB (This prescription has been renewed) Lorazepam* (Ativan*) 1 Mg Tablet 1 MG ORAL Q12HR, #10 TAB (This prescription has been renewed) Multivitamins* (Multivitamins*) 1 Each Tablet 1 TAB ORAL DAILY, #30 TAB 0 Refills (This prescription has been renewed) Thiamine Hcl* (Vitamin B-1*) 100 Mg Tablet 100 MG ORAL DAILY, #30 TAB 0 Refills (This prescription has been renewed) Unable to Obtain Medications (Unable To Obtain Meds) 1 Ea Ea (This prescription has been renewed) Discharge Condition Upon Discharge: improving Discharge Disposition Patient was discharged to inpatient psychiatric unit for acute rehab Discharge Diagnoses: (1) Sepsis (2) UTI (urinary tract infection) (3) Acute alcoholic intoxication (4) Alcohol abuse (5) Acute encephalopathy Discharge Instructions Discharge Instructions Follow up with: F/u with outpatient psychiatrist. Almaz Mcclellan NP October 20, 2017 14:57
[2017-10-20 15:37] VITALS: BP 117/76
== END 2017-10-20 15:39 | DRG 871 ==
LOC: EDBD 17:18 → EMR 18:33 → 2E 20:16 → EDBEDREQ 10-19 01:05
DX: A41.9 Sepsis, unspecified organism (principal); G92 Toxic encephalopathy; N39.0 Urinary tract infection, site not specified; F10.129 Alcohol abuse with intoxication, unspecified; F13.10 Sedative, hypnotic or anxiolytic abuse, uncomplicated
CPT/HCPCS: 36415; 71045; 80048; 80053; 80307; 80329; 81003; 81025; 83605; 85025; 87040; 87086; 87181; 99285